=== PATIENT | female | born 1955 | race Two or more races ===

== ENCOUNTER 2022-02-27 21:01 | Emergency (ER) | payer MEDICARE, OTHER ==
[~2022-02-27] VITALS: Ht 162.6 cm; Wt 75.3 kg
[2022-02-27 21:10] VITALS: BP 167/77
--- NOTE | 2022-02-27 21:14 | NUR ---
TO LOBBY A/W BED AMBULATORY
--- NOTE | 2022-02-27 21:22 | NUR ---
PT TAKEN TO BED 12.
--- NOTE | 2022-02-27 21:27 | NUR ---
DR SOTELO EXAMINING PT
--- NOTE | 2022-02-27 21:43 | NUR ---
66 YO F BIB SELF WITH C/C OF 6/10 TENSION H/A XTODAY. PT REPORTS UPSET STOMACH AND NAUSEA. STATES AT SOME POINT TODAY SHE HAD CHEST PRESSURE THAT HAS NOW SUBSIDED. REPORTS PERIODIC DIZZINESS. DENIES. PT STATES SHE TOOK ADVIL THIS AM WITH NO RELIEF. DENIES HX, RX AND ALLERGIES
[2022-02-27] MEDS ORDERED: NITROGLYCERIN 0.4 MG TAB SL ONE (22:10)
[2022-02-27] MEDS ORDERED: NACL 0.9% 1,000 ML IV ONE (22:10)
[2022-02-27] MEDS ORDERED: ASPIRIN 325 MG TAB PO ONE (22:10)
[2022-02-27] MEDS ORDERED: ONDANSETRON 4 MG/2 ML VIAL IVP ONE (22:10)
[2022-02-27] MEDS ORDERED: FAMOTIDINE 20 MG/2 ML VIAL IVP ONE (22:10)
--- NOTE | 2022-02-27 22:18 | NUR ---
LAB AT BEDSIDE.
--- NOTE | 2022-02-27 22:24 | NUR ---
1ST NITRO GIVEN NOW. BP 159/87 HR 69
[2022-02-27 22:26] LABS: BASOPHILS # (AUTO) 0.1 K/uL (0.00-0.22); BASOPHILS % (AUTO) 0.7 % (0.0-2.0); EOSINOPHILS # (AUTO) 0.2 K/uL (0-0.4); EOSINOPHILS % (AUTO) 3.4 % (0.0-4.0); HEMATOCRIT 40.4 % (36-48); HEMOGLOBIN 13.5 g/dL (12.0-16.0); LYMPHOCYTES # (AUTO) 1.7 K/uL (2.5-16.5); LYMPHOCYTES % (AUTO) 23.9 % (20.5-51.1); MEAN CORPUSCULAR HEMOGLOBIN 30 pg (27-31); MEAN CORPUSCULAR HGB CONC 34 g/dL (33-37); MONOCYTES # (AUTO) 0.6 K/uL (0.8-1.0); MONOCYTES % (AUTO) 8.9 % (1.7-9.3); NEUTROPHILS # (AUTO) 4.6 K/uL (1.8-7.7); NEUTROPHILS % (AUTO) 63.1 % (42.2-75.2); PLATELET COUNT (AUTO) 214 K/uL (140-450); RED BLOOD CELL COUNT(AUTO) 4.49 MIL/uL (4.20-5.40); RED CELL DISTRIBUTION WIDTH 13.2 % (11.6-13.7); WHITE BLOOD COUNT (AUTO) 7.2 K/uL (4.8-10.8)
--- NOTE | 2022-02-27 22:55 | NUR ---
RAD AT BEDSIDE
[2022-02-27 23:03] LABS: ALBUMIN 3.8 g/dL (3.4-5.0); ANION GAP 12.6 (8-16); ASPARTATE AMINOTRANSFERASE 13 U/L (15-37); CARBON DIOXIDE 26.1 mmol/L (21-32); CHLORIDE 100 mmol/L (98-107); CREATININE 0.8 mg/dL (0.6-1.3); GFR ARICAN-AMERICAN 92 mL/min (>90); GLUCOSE 114 mg/dL (74-106); POTASSIUM 3.7 mmol/L (3.5-5.1); SODIUM SERUM 135 mmol/L (136-145); TOTAL BILIRUBIN 0.7 mg/dL (0.0-1.0); UREA NITROGEN, BLOOD 12 mg/dL (7-18)
--- NOTE | 2022-02-28 00:51 | NUR ---
PT IS AWAKE AND ALERT, ALL NEEDS MET AT THIS TIME
[2022-02-28] MEDS ORDERED: PANT40EC PO (01:39)
[2022-02-28 01:47] VITALS: BP 127/73
--- NOTE | 2022-02-28 01:47 | NUR ---
Patient discharged with v/s stable. Written and verbal after care instructions given and explained. Patient alert, oriented and verbalized understanding of instructions. Ambulatory with steady gait. All questions addressed prior to discharge. ID band removed. Patient advised to follow up with PMD. Rx of PROTONIX given. Patient educated on indication of medication including possible reaction and side effects. Opportunity to ask questions provided and answered.
== END 2022-02-28 01:47 | disposition home or self-care (01) ==
LOC: MED 21:01
DX: R07.89 Other chest pain (principal)
CPT/HCPCS: 36415; 71045; 80053; 84484; 85025; 93005; 96361; 96374; 96375; 99285; J2405; J3490; J7030